=== PATIENT | female | born 1965 | race Hispanic/Latino ===

== ENCOUNTER 2017-04-08 20:14 | Emergency (ER) | payer SELFPAY ==
[~2017-04-08] VITALS: Ht 152.4 cm; Wt 69.0 kg
[~2017-04-08 20:14] MED LIST: CAPOTEN25 MG PO; CAPTOPRIL PO; GENTAMICIN15 ML/BTL OP; PREVACID30 M2 PO; ZITHROMAX250 MG PO; ZOFRAN ODT8 MG PO; [UNRECOGNIZED DRUG - REMARK]
--- NOTE | 2017-04-08 20:48 | NUR ---
breathing treatment given. breathing tech. for good deposition to the lungs.
[2017-04-08] MEDS ORDERED: OMEPRAZOLE20 M1 PO (21:37)
[2017-04-08] MEDS ORDERED: METRONIDAZOLE500 MG PO (21:38)
[2017-04-08] MEDS ORDERED: LISINOPRIL40 MG PO (21:39)
[2017-04-08] MEDS ORDERED: AMLODIPINE5 MG PO (21:39)
[2017-04-08] MEDS ORDERED: BAYER ASPIRIN E81 MG PO (21:40)
[2017-04-08] MEDS ORDERED: PRAVASTATIN20 MG PO (21:40)
[2017-04-08] MEDS ORDERED: ZITHROMAX250 MG PO (21:46)
[2017-04-08] MEDS ORDERED: PROVENTIL HFA IN (21:48)
[2017-04-08 22:10] VITALS: BP 126/60
== END 2017-04-08 22:10 | disposition home or self-care (01) | DRG 203 ==
LOC: ED 20:14
DX: J45.909 Unspecified asthma, uncomplicated (principal); I10 Essential (primary) hypertension

== ENCOUNTER 2017-08-11 19:36 | Emergency (ER) | payer SELFPAY ==
[~2017-08-11] VITALS: Ht 152.4 cm; Wt 67.2 kg
[~2017-08-11 19:36] MED LIST changes: +AMLODIPINE5 MG PO; +BAYER ASPIRIN E81 MG PO; +LISINOPRIL40 MG PO; +METRONIDAZOLE500 MG PO; +OMEPRAZOLE20 M1 PO; +PRAVASTATIN20 MG PO; +PROVENTIL HFA IN
[2017-08-11 21:17] LABS: HEMOGLOBIN 12.8 g/dl (12.0-16.0); IMMATURE GRANULOCYTES 0.4 % (0.0-1.0); MEAN CELL VOLUME 90.2 fL CALC (80.0-100.0); MEAN CORPUSCULAR HGB 31.2 pG CALC (26.0-32.0); MEAN CORPUSCULAR HGB CONC 34.6 g/L CALC (32.0-36.0); NEUT# 5.47 thou/uL (2.00-7.15); RED BLOOD COUNT 4.1 mill/uL (4.20-5.60); RED CELL DISTRI WIDTH 12.2 % (11.5-15.5)
[2017-08-11 21:33] LABS: INFLUENZA A NONE DETECTED (NONE DETECT); INFLUENZA B NONE DETECTED (NONE DETECT)
[2017-08-11 21:34] LABS: ALBUMIN 4.3 g/dL (3.2-5.0); ALKALINE PHOSPHATASE 120 u/l (38-126); ANION GAP 20 (6-22 (CALC)); BILIRUBIN, TOTAL 0.2 mg/dL (0.0-1.4); BUN 13 mg/dL (7-17); BUN/CREATININE RATIO 18 (12-20 (CALC)); CALCIUM 9.9 mg/dL (8.4-10.2); CARBON DIOXIDE 20 mmol/l (22-30); CHLORIDE 109 mmol/l (95-108); CREATININE 0.8 mg/dL (0.5-1.0); GFR > 60 ML/MIN (>=60 (CALC)); GFR FOR AFR.AMER. > 60 ML/MIN (>=60 (CALC)); GLUCOSE 105 mg/dL (65-105); SGOT/AST 24 u/l (14-36); SGPT/ALT 46 u/l (9-52); SODIUM 145 mmol/l (137-146); TOTAL PROTEIN 7.5 g/dL (6.3-8.2)
[2017-08-11 21:45] LABS: INTERNATIONAL NORMALIZED RATIO 0.9 RATIO (0.7-1.3); PROTHROMBIN TIME 10.1 SECONDS (9.0-12.5)
[2017-08-11] MEDS ORDERED: ZPAK PO (22:38)
[2017-08-11] MEDS ORDERED: CLARITIN10 M1 PO (22:38)
[2017-08-11 23:05] VITALS: BP 152/78
== END 2017-08-11 23:05 | disposition home or self-care (01) | DRG 153 ==
LOC: ED 19:36
PROVIDERS: Emergency Medicine
DX: J02.0 Streptococcal pharyngitis (principal); J31.0 Chronic rhinitis; R04.0 Epistaxis; E78.00 Pure hypercholesterolemia, unspecified; I10 Essential (primary) hypertension; J45.909 Unspecified asthma, uncomplicated; F41.9 Anxiety disorder, unspecified

== ENCOUNTER 2019-09-26 | Emergency (ER) | payer SELFPAY ==
[~2019-09-26] MED LIST changes: +CLARITIN10 M1 PO; +ZPAK PO
[2019-09-26] MEDS ORDERED: OMEPRAZOLE DR20 MG PO (03:16)
[2019-09-26 03:29] LABS: HEMATOCRIT 39.1 % (37.0-47.0); HEMOGLOBIN 13.2 g/dl (12.0-16.0); IMMATURE GRANULOCYTES 0.4 % (0.0-5.0); MEAN CELL VOLUME 87.9 fL CALC (80.0-100.0); MEAN CORPUSCULAR HGB 29.7 pG CALC (26.0-32.0); MEAN CORPUSCULAR HGB CONC 33.8 g/dL CAL (32.0-36.0); NEUT# 5.69 thou/uL (2.00-7.15); RED BLOOD COUNT 4.45 mill/uL (4.20-5.60)
[2019-09-26 03:46] LABS: ACT PARTIAL THROMBO TIME 25.5 SECONDS (20.0-32.5); INTERNATIONAL NORMALIZED RATIO 0.9 RATIO (0.7-1.3); PROTHROMBIN TIME 9.9 SECONDS (9.0-12.5)
[2019-09-26 03:50] LABS: ALBUMIN 4.3 g/dL (3.2-5.0); ALKALINE PHOSPHATASE 116 u/l (38-126); BUN 13 mg/dL (7-17); BUN/CREATININE RATIO 23 (12-20 (CALC)); CARBON DIOXIDE 23 mmol/l (22-30); CHLORIDE 104 mmol/l (95-108); CREATININE 0.6 mg/dL (0.5-1.0); GFR > 60 ML/MIN (>=60 (CALC)); GFR FOR AFR.AMER. > 60 ML/MIN (>=60 (CALC)); LIPASE 73 u/l (23-300); POTASSIUM 3.7 mmol/l (3.5-5.1); SGOT/AST 31 u/l (14-36); TOTAL PROTEIN 7.8 g/dL (6.3-8.2)
[2019-09-26 03:51] LABS: ANION GAP 14 (6-22 (CALC)); BILIRUBIN, TOTAL 0.6 mg/dL (0.0-1.4); SODIUM 137 mmol/l (137-146)
[2019-09-26 04:28] LABS: URINE BILIRUBIN - DIPSTICK NEGATIVE (NEGATIVE); URINE BLOOD DIPSTICK NEGATIVE (NEGATIVE); URINE COLOR YELLOW; URINE GLUCOSE - DIPSTICK NEGATIVE (NEGATIVE); URINE KETONE NEGATIVE (NEGATIVE); URINE LEUK ESTERASE NEGATIVE (NEGATIVE); URINE NITRITE - DIPSTICK NEGATIVE (Negative); URINE PROTEIN - DIPSTICK NEGATIVE (NEG-TRACE); URINE UROBILINOGEN - DIPSTICK 0.2 E.U./dL (0.2)
[2019-09-26] MEDS ORDERED: LEVAQUIN500 MG PO (05:48)
[2019-09-26] MEDS ORDERED: TRAMADOL HYDROC50 MG PO (05:48)
== END 2019-09-26 06:20 | disposition home or self-care (01) | DRG 153 ==
DX: J32.9 Chronic sinusitis, unspecified (principal); R07.89 Other chest pain; I10 Essential (primary) hypertension

== ENCOUNTER 2020-08-08 16:35 | Emergency (ER) | payer SELFPAY ==
[~2020-08-08] VITALS: Ht 152.4 cm; Wt 68.1 kg
[~2020-08-08 16:35] MED LIST changes: +LEVAQUIN500 MG PO; +OMEPRAZOLE DR20 MG PO; +TRAMADOL HYDROC50 MG PO
[2020-08-08 17:34] LABS: URINE BILIRUBIN - DIPSTICK NEGATIVE (NEGATIVE); URINE BLOOD DIPSTICK NEGATIVE (NEGATIVE); URINE CLARITY CLEAR; URINE COLOR YELLOW; URINE GLUCOSE - DIPSTICK NEGATIVE (NEGATIVE); URINE KETONE NEGATIVE (NEGATIVE); URINE LEUK ESTERASE NEGATIVE (Negative); URINE NITRITE - DIPSTICK NEGATIVE (Negative); URINE PROTEIN - DIPSTICK TRACE mg/dL (NEG-TRACE); URINE SPECIFIC GRAVITY >=1.030; URINE UROBILINOGEN - DIPSTICK 0.2 E.U./dL (0.2)
[2020-08-08 17:42] LABS: HEMATOCRIT 39.2 % (37.0-47.0); IMMATURE GRANULOCYTES 0.3 % (0.0-5.0); MEAN CELL VOLUME 90.3 fL CALC (80.0-100.0); MEAN CORPUSCULAR HGB CONC 33.2 g/dL CAL (32.0-36.0); NEUT# 6.22 thou/uL (2.00-7.15); RED BLOOD COUNT 4.34 mill/uL (4.20-5.60); RED CELL DISTRI WIDTH 11.9 % (11.5-15.5)
[2020-08-08 17:55] LABS: ALBUMIN 4.6 g/dL (3.2-5.0); ALKALINE PHOSPHATASE 133 u/l (38-126); ANION GAP 13 (6-22 (CALC)); BILIRUBIN, TOTAL 0.4 mg/dL (0.0-1.4); BUN 20 mg/dL (7-17); BUN/CREATININE RATIO 29 (12-20 (CALC)); CARBON DIOXIDE 26 mmol/l (22-30); CHLORIDE 105 mmol/l (95-108); CREATININE 0.7 mg/dL (0.5-1.0); GFR > 60 ML/MIN (>=60 (CALC)); GFR FOR AFR.AMER. > 60 ML/MIN (>=60 (CALC)); LIPASE 53 u/l (23-300); SGOT/AST 49 u/l (14-36); SODIUM 139 mmol/l (137-146); TOTAL PROTEIN 8.4 g/dL (6.3-8.2)
[2020-08-08] MEDS ORDERED: LISINOPRIL5 MG PO (18:01)
[2020-08-08] MEDS ORDERED: METRONIDAZOL500 MG PO ×2 (19:19→20:11)
[2020-08-08] MEDS ORDERED: CIPROFLOXACN500 MG PO ×2 (19:19→20:11)
[2020-08-08 20:33] VITALS: BP 123/60
== END 2020-08-08 20:34 | disposition home or self-care (01) | DRG 392 ==
LOC: ED 16:35
DX: K57.32 Diverticulitis of large intestine without perforation or abscess without bleeding (principal); I10 Essential (primary) hypertension; J45.909 Unspecified asthma, uncomplicated; F41.9 Anxiety disorder, unspecified; E78.00 Pure hypercholesterolemia, unspecified
CPT/HCPCS: Q9967

== ENCOUNTER 2021-05-11 20:31 | Emergency (ER) | payer SELFPAY ==
[~2021-05-11] VITALS: Ht 152.4 cm; Wt 69.1 kg
[~2021-05-11 20:31] MED LIST changes: +CIPROFLOXACN500 MG PO; +LISINOPRIL5 MG PO; +METRONIDAZOL500 MG PO
[2021-05-11] MEDS ORDERED: METFORMIN HCL1000 MG PO (21:30)
[2021-05-11] MEDS ORDERED: MELATONIN10 MG (21:38)
[2021-05-11] MEDS ORDERED: NORVASC5 M1 PO (21:39)
[2021-05-11] MEDS ORDERED: VOLTAREN75 MG PO (21:51)
[2021-05-11 22:04] VITALS: BP 137/64
== END 2021-05-11 22:04 | disposition home or self-care (01) | DRG 605 ==
LOC: ED 20:31
DX: S90.32XA Contusion of left foot, initial encounter (principal); I10 Essential (primary) hypertension; J45.909 Unspecified asthma, uncomplicated; F41.9 Anxiety disorder, unspecified; E78.00 Pure hypercholesterolemia, unspecified; W22.8XXA Striking against or struck by other objects, initial encounter

== ENCOUNTER 2021-12-04 16:33 | Emergency (ER) | payer SELFPAY ==
[~2021-12-04] VITALS: Ht 152.4 cm; Wt 91.0 kg
[~2021-12-04 16:33] MED LIST changes: +MELATONIN10 MG; +METFORMIN HCL1000 MG PO; +NORVASC5 M1 PO; +VOLTAREN75 MG PO
[2021-12-04 17:23] LABS: HEMATOCRIT 37.1 % (37.0-47.0); HEMOGLOBIN 12.6 g/dl (12.0-16.0); IMMATURE GRANULOCYTES 0.2 % (0.0-5.0); MEAN CELL VOLUME 90.7 fL CALC (80.0-100.0); MEAN CORPUSCULAR HGB 30.8 pG CALC (26.0-32.0); NEUT# 7.77 thou/uL (2.00-7.15); RED BLOOD COUNT 4.09 mill/uL (4.20-5.60)
[2021-12-04 17:41] LABS: ALBUMIN 4.4 g/dL (3.2-5.0); ALKALINE PHOSPHATASE 139 u/l (38-126); ANION GAP 15 (6-22 (CALC)); BILIRUBIN, TOTAL 0.2 mg/dL (0.0-1.4); BUN 27 mg/dL (7-17); BUN/CREATININE RATIO 33 (12-20 (CALC)); CARBON DIOXIDE 21 mmol/l (22-30); CHLORIDE 107 mmol/l (95-108); CREATININE 0.8 mg/dL (0.5-1.0); GFR FOR AFR.AMER. > 60 ML/MIN (>=60 (CALC)); GFR OTHER RACES > 60 ML/MIN (>=60 (CALC)); LIPASE 77 u/l (23-300); POTASSIUM 3.8 mmol/l (3.5-5.1); SGOT/AST 41 u/l (14-36); SODIUM 139 mmol/l (137-146)
[2021-12-04] MEDS ORDERED: METRONIDAZOLE500 MG PO (18:43)
[2021-12-04 19:37] LABS: URINE BILIRUBIN - DIPSTICK NEGATIVE (NEGATIVE); URINE BLOOD DIPSTICK NEGATIVE (NEGATIVE); URINE COLOR YELLOW; URINE GLUCOSE - DIPSTICK NEGATIVE (NEGATIVE); URINE KETONE NEGATIVE (NEGATIVE); URINE LEUK ESTERASE NEGATIVE (NEGATIVE); URINE PH 5.5 (4.5-8.0); URINE PROTEIN - DIPSTICK NEGATIVE (NEG-TRACE); URINE SPECIFIC GRAVITY 1.015; URINE UROBILINOGEN - DIPSTICK 0.2 E.U./dL (0.2)
[2021-12-04 19:42] LABS: URINE NITRITE - DIPSTICK NEGATIVE (Negative)
[2021-12-04] MEDS ORDERED: MIRALAX17 GM PO (21:32)
[2021-12-04] MEDS ORDERED: NAPROXEN500 MG PO (21:33)
[2021-12-04 22:01] VITALS: BP 125/67
== END 2021-12-04 22:08 | disposition home or self-care (01) | DRG 392 ==
LOC: ED 16:33
PROVIDERS: Family Medicine
DX: K59.00 Constipation, unspecified (principal); B34.9 Viral infection, unspecified; D25.9 Leiomyoma of uterus, unspecified; R16.0 Hepatomegaly, not elsewhere classified; I10 Essential (primary) hypertension; E78.5 Hyperlipidemia, unspecified; E11.9 Type 2 diabetes mellitus without complications; J45.909 Unspecified asthma, uncomplicated; F41.9 Anxiety disorder, unspecified; Z79.84 Long term (current) use of oral hypoglycemic drugs; Z20.822 Contact with and (suspected) exposure to COVID-19
CPT/HCPCS: Q9967

== ENCOUNTER 2022-01-10 20:04 | Emergency (ER) | payer SELFPAY ==
[~2022-01-10] VITALS: Ht 152.4 cm; Wt 75.0 kg
[2022-01-10] VITALS (8 sets, daily range): BP systolic 136–169; BP diastolic 72–95
[~2022-01-10 20:04] MED LIST changes: +MIRALAX17 GM PO; +NAPROXEN500 MG PO
[2022-01-10 20:59] LABS: HEMATOCRIT 35.3 % (37.0-47.0); HEMOGLOBIN 12.1 g/dl (12.0-16.0); IMMATURE GRANULOCYTES 0.3 % (0.0-5.0); MEAN CELL VOLUME 89.8 fL CALC (80.0-100.0); MEAN CORPUSCULAR HGB 30.8 pG CALC (26.0-32.0); MEAN CORPUSCULAR HGB CONC 34.3 g/dL CAL (32.0-36.0); NEUT# 10.34 thou/uL (2.00-7.15); RED BLOOD COUNT 3.93 mill/uL (4.20-5.60); RED CELL DISTRI WIDTH 11.9 % (11.5-15.5)
[2022-01-10 21:16] LABS: ALBUMIN 4.4 g/dL (3.2-5.0); ALKALINE PHOSPHATASE 136 u/l (38-126); AMYLASE 74 u/l (30-110); ANION GAP 15 (6-22 (CALC)); BILIRUBIN, TOTAL 0.2 mg/dL (0.0-1.4); BUN 17 mg/dL (7-17); BUN/CREATININE RATIO 19 (12-20 (CALC)); CARBON DIOXIDE 23 mmol/l (22-30); CHLORIDE 103 mmol/l (95-108); CREATININE 0.9 mg/dL (0.5-1.0); GFR FOR AFR.AMER. > 60 ML/MIN (>=60 (CALC)); GFR OTHER RACES > 60 ML/MIN (>=60 (CALC)); LIPASE 44 u/l (23-300); POTASSIUM 3.8 mmol/l (3.5-5.1); SGOT/AST 30 u/l (14-36); SODIUM 137 mmol/l (137-146); TOTAL PROTEIN 7.5 g/dL (6.3-8.2)
[2022-01-10 21:28] LABS: MYOGLOBIN 23 ng/mL (0 - 62)
[2022-01-10 21:46] LABS: URINE BILIRUBIN - DIPSTICK NEGATIVE (NEGATIVE); URINE BLOOD DIPSTICK MODERATE (NEGATIVE); URINE COLOR YELLOW; URINE GLUCOSE - DIPSTICK NEGATIVE (NEGATIVE); URINE KETONE NEGATIVE (NEGATIVE); URINE LEUK ESTERASE NEGATIVE (NEGATIVE); URINE PROTEIN - DIPSTICK NEGATIVE (NEG-TRACE); URINE SPECIFIC GRAVITY >=1.030; URINE UROBILINOGEN - DIPSTICK 0.2 E.U./dL (0.2)
[2022-01-10 21:47] LABS: URINE NITRITE - DIPSTICK NEGATIVE (Negative)
[2022-01-10 21:57] LABS: URINE SQUAMOUS EPITHELIAL CELL FEW EPI/hpf (0-FEW); URINE WBC 0-2 WBC/hpf (0-5)
[2022-01-10] MEDS ORDERED: TAMSULOSIN0.4 MG PO (22:57)
[2022-01-10] MEDS ORDERED: ULTRAM50 M1 PO (22:57)
[2022-01-11 00:01] VITALS: BP 150/79
== END 2022-01-11 00:15 | disposition home or self-care (01) | DRG 694 ==
LOC: ED 20:04
PROVIDERS: Emergency Medicine
DX: N20.0 Calculus of kidney (principal); I10 Essential (primary) hypertension; J45.909 Unspecified asthma, uncomplicated; F41.9 Anxiety disorder, unspecified; E78.00 Pure hypercholesterolemia, unspecified
CPT/HCPCS: Q9967

== ENCOUNTER 2022-08-29 21:54 | Observation (INO) | payer OTHER ==
[~2022-08-29] VITALS: Ht 152.4 cm; Wt 68.6 kg
[~2022-08-29 21:54] MED LIST changes: +TAMSULOSIN0.4 MG PO; +ULTRAM50 M1 PO
[2022-08-29 22:15] LABS: BASO% 0.5 % (0-3); EOS% 6.8 % (0-8); HEMATOCRIT 38.9 % (37.0-47.0); HEMOGLOBIN 12.8 g/dl (12.0-16.0); IMMATURE GRANULOCYTES 0.2 % (0.0-5.0); LYMPH% 41.8 % (15-41); MEAN CELL VOLUME 89.2 fL CALC (80.0-100.0); MEAN CORPUSCULAR HGB 29.4 pG CALC (26.0-32.0); MEAN CORPUSCULAR HGB CONC 32.9 g/dL CAL (32.0-36.0); MONO% 6.6 % (2-13); NEUT# 4.25 thou/uL (2.00-7.15); NEUT% 44.1 % (42-76); RED BLOOD COUNT 4.36 mill/uL (4.20-5.60); RED CELL DISTRI WIDTH 12.4 % (11.5-15.5)
[2022-08-29 22:27] LABS: ALBUMIN 4.4 g/dL (3.2-5.0); ALKALINE PHOSPHATASE 128 u/l (38-126); ANION GAP 13 (6-22 (CALC)); BILIRUBIN, TOTAL 0.2 mg/dL (0.02-1.3); BUN 17 mg/dL (7-17); BUN/CREATININE RATIO 23 (12-20 (CALC)); CARBON DIOXIDE 24 mmol/l (22-30); CHLORIDE 105 mmol/l (95-108); CREATININE 0.8 mg/dL (0.5-1.0); GFR FOR AFR.AMER. > 60 ML/MIN (>=60 (CALC)); GFR OTHER RACES > 60 ML/MIN (>=60 (CALC)); POTASSIUM 3.7 mmol/l (3.5-5.1); SGOT/AST 40 u/l (14-36); SODIUM 138 mmol/l (137-146); TOTAL PROTEIN 7.9 g/dL (6.3-8.2)
[2022-08-29 22:28] LABS: PROTHROMBIN TIME 9.7 SECONDS (9.0-12.5)
[2022-08-29 22:28] LABS: URINE BILIRUBIN - DIPSTICK NEGATIVE (NEGATIVE); URINE BLOOD DIPSTICK NEGATIVE (NEGATIVE); URINE COLOR YELLOW; URINE GLUCOSE - DIPSTICK 100 mg/dL (NEGATIVE); URINE KETONE NEGATIVE (NEGATIVE); URINE LEUK ESTERASE NEGATIVE (NEGATIVE); URINE PROTEIN - DIPSTICK NEGATIVE (NEG-TRACE); URINE SPECIFIC GRAVITY 1.025; URINE UROBILINOGEN - DIPSTICK 0.2 E.U./dL (0.2)
[2022-08-29 22:35] LABS: URINE NITRITE - DIPSTICK NEGATIVE (Negative)
[2022-08-29 22:36] VITALS: BP 143/72
[2022-08-29 22:46] VITALS: BP 127/109
[2022-08-29 23:00] VITALS: BP 119/63
[2022-08-29 23:15] VITALS: BP 120/73
[2022-08-29 23:30] VITALS: BP 123/70
[2022-08-29 23:45] VITALS: BP 123/70
[2022-08-30] VITALS (30 sets, daily range): BP systolic 100–156; BP diastolic 43–70
[2022-08-30] MEDS ORDERED: ESTRACE1 MG PO (00:52)
[2022-08-30] MEDS ORDERED: PROGESTERONE200 MG PO (00:53)
[2022-08-31 04:11] VITALS: BP 115/61
[2022-08-31 05:30] LABS: BASO% 0.5 % (0-3); EOS% 5.6 % (0-8); HEMATOCRIT 38.4 % (37.0-47.0); HEMOGLOBIN 12.8 g/dl (12.0-16.0); IMMATURE GRANULOCYTES 0.3 % (0.0-5.0); LYMPH% 42.9 % (15-41); MEAN CELL VOLUME 89.3 fL CALC (80.0-100.0); MEAN CORPUSCULAR HGB 29.8 pG CALC (26.0-32.0); MEAN CORPUSCULAR HGB CONC 33.3 g/dL CAL (32.0-36.0); MONO% 7.9 % (2-13); NEUT# 3.3 thou/uL (2.00-7.15); NEUT% 42.8 % (42-76); RED BLOOD COUNT 4.3 mill/uL (4.20-5.60); RED CELL DISTRI WIDTH 12.3 % (11.5-15.5)
[2022-08-31 06:05] LABS: ALBUMIN 3.9 g/dL (3.2-5.0); ALKALINE PHOSPHATASE 127 u/l (38-126); BUN 18 mg/dL (7-17); BUN/CREATININE RATIO 27 (12-20 (CALC)); CARBON DIOXIDE 24 mmol/l (22-30); CHLORIDE 107 mmol/l (95-108); CREATININE 0.7 mg/dL (0.5-1.0); GFR FOR AFR.AMER. > 60 ML/MIN (>=60 (CALC)); GFR OTHER RACES > 60 ML/MIN (>=60 (CALC)); SGOT/AST 28 u/l (14-36); SODIUM 139 mmol/l (137-146); TOTAL PROTEIN 6.9 g/dL (6.3-8.2)
[2022-08-31 06:09] LABS: ANION GAP 13 (6-22 (CALC)); POTASSIUM 4.5 mmol/l (3.5-5.1)
[2022-08-31 07:47] VITALS: BP 116/43
[2022-08-31 12:21] VITALS: BP 120/55
[2022-08-31] MEDS ORDERED: ASPIRIN 81 LOW81 MG PO (12:41)
== END 2022-08-31 13:34 | disposition home or self-care (01) | DRG 149 ==
LOC: ED 21:54 → ED-I 23:35 → ED 08-30 00:06 → MS2 08-30 00:07 → ED-I 08-30 00:07 → MS2 08-30 06:19
PROVIDERS: Emergency Medicine; Nurse Practitioner Family; ADMIT Internal Medicine; ATTEND Internal Medicine
DX: R42 Dizziness and giddiness (principal); R20.0 Anesthesia of skin; R47.01 Aphasia; G51.0 Bell's palsy; I10 Essential (primary) hypertension; E11.9 Type 2 diabetes mellitus without complications; J45.909 Unspecified asthma, uncomplicated; F41.9 Anxiety disorder, unspecified; E78.00 Pure hypercholesterolemia, unspecified; Z79.84 Long term (current) use of oral hypoglycemic drugs
CPT/HCPCS: G0378; J2060; Q9967

== ENCOUNTER 2024-01-01 08:04 | Observation (INO) | payer OTHER ==
[~2024-01-01] VITALS: Ht 152.4 cm; Wt 69.3 kg
[2024-01-01] VITALS (20 sets, daily range): BP systolic 112–170; BP diastolic 55–78
[~2024-01-01 08:04] MED LIST changes: +ASPIRIN 81 LOW81 MG PO; +ESTRACE1 MG PO; +PROGESTERONE200 MG PO
--- NOTE | 2024-01-01 08:09 | NUR ---
PATIENT TO ROOM 10
[2024-01-01] MEDS ORDERED: ASPIRIN 81 MG/TAB PO ONE (08:10)
[2024-01-01] MEDS ORDERED: NITROGLYCERIN 0.4 MG/TAB SL ONE (08:15)
[2024-01-01 08:34] LABS: BASO% 0.6 % (0-3); EOS% 3.7 % (0-8); HEMATOCRIT 40.9 % (37.0-47.0); HEMOGLOBIN 13.7 g/dl (12.0-16.0); IMMATURE GRANULOCYTES 0.2 % (0.0-5.0); LYMPH% 43.5 % (15-41); MEAN CELL VOLUME 90.1 fL CALC (80.0-100.0); MEAN CORPUSCULAR HGB 30.2 pG CALC (26.0-32.0); MEAN CORPUSCULAR HGB CONC 33.5 g/dL CAL (32.0-36.0); MONO% 6.1 % (2-13); NEUT# 5.15 thou/uL (2.00-7.15); NEUT% 45.9 % (42-76); RED BLOOD COUNT 4.54 mill/uL (4.20-5.60); RED CELL DISTRI WIDTH 11.9 % (11.5-15.5)
[2024-01-01 08:53] LABS: ALBUMIN 4.3 g/dL (3.2-5.0); ALKALINE PHOSPHATASE 106 u/l (38-126); ANION GAP 11 (6-22 (CALC)); BILIRUBIN, TOTAL 0.4 mg/dL (0.02-1.3); BUN 18 mg/dL (7-17); BUN/CREATININE RATIO 30 (12-20 (CALC)); CARBON DIOXIDE 23 mmol/l (22-30); CHLORIDE 110 mmol/l (95-108); CREATININE 0.6 mg/dL (0.5-1.0); ESTIMATED GFR 105 ML/MIN (>=90 (CALC)); SGOT/AST 25 u/l (14-36); SODIUM 139 mmol/l (137-146); TOTAL PROTEIN 7.8 g/dL (6.3-8.2)
--- NOTE | 2024-01-01 09:23 | NUR ---
PT REPORTS CHEST PAIN HAS [id number] TO 08/03. PT REPORTS CONTINUED SOB. PT HAS A DRY COUGH.
--- NOTE | 2024-01-01 10:30 | NUR ---
PT RESTIONG IN BED, EYES LOSED. VSS. DAUGHTER AT SIDE.
--- NOTE | 2024-01-01 11:32 | NUR ---
PT [id number] SHE DOES NOT KNOW HER MEDS OR THE DOSAGES. PTS DAUGHET IS LEAVING BEDSIDE TO GO HOME AND PALLET ASSEMBLER THE LIST. WILL LET NEXT NURSE KNOW IN REPORTS.
[2024-01-01] MEDS ORDERED: MAGNESIUM HYDROXIDE 30 ML UDC PO PRN (11:55)
--- NOTE | 2024-01-01 11:57 | NUR ---
REPORT CALLED AND GIVEN TO MARKELL ON [facility].
--- NOTE | 2024-01-01 12:10 | NUR ---
PATIENT ARRIVED TO [place] VIA WHEELCHAIR; ROOM AIR; BREATHING UNLABORED AND EVEN; TELE LEADS ARE ATTACHED AND WORKING WITH NO ISSUES; DENIED ANY PAIN; DENIED ANY N/D/V AT THIS TIME; IV SITE CLEAN AND INTACT; EDUCATED ON FALL RISK AND PREVENTION; PATIENT STABLE IN BED WITH NO ISSUES; CALL LIGHT WITHIN REACH,VERBALIZED UNDERSTANDING ON HOW TO USE, PERSONAL ITEMS WITHIN REACH, BED IN LOWEST POSTION
[2024-01-01] MEDS ORDERED: D31000 UNIT PO (12:30)
[2024-01-01] MEDS ORDERED: OXYBUTYNIN CHLOR5 M2 PO (12:31)
[2024-01-01] MEDS ORDERED: EZETIMIBE10 MG PO (12:31)
[2024-01-01] MEDS ORDERED: NITROGLYCERIN 0.4 MG/TAB SL PRN (13:05)
[2024-01-01] MEDS ORDERED: MORPHINE SULFATE 4 MG/ML VIAL IV PRN (13:05)
[2024-01-01] MEDS ORDERED: DEXTROSE 250 ML IV PRN (13:20)
[2024-01-01] MEDS ORDERED: IBUPROFEN 600 MG/TAB PO PRN (15:05)
--- NOTE | 2024-01-01 15:30 | NUR ---
CARIDOLOGIST CONSULT STARTED
--- NOTE | 2024-01-01 16:05 | NUR ---
PATIENT A/O X3; ROOM AIR; BREATHING UNALBORED AND EVEN; DENEID ANY CHEST PAIN; DENIED ANY N/D/V AT THIS TIME; IV SITE CLEAN AND INTCAT SALINE LOCKED WITH NO ISSUES; TELE LEADS ARE ATTACHED AND WORKING WITH NO ISSUES; NO S/S OF DISTRESS AT THIS TIME; CALL LIGHT WITHIN REACH, VERBALIZED UNDERSTANDING ON HOW TO USE, PERSONAL ITEMS WITHIN REACH, BED IN LOWEST POSTION
[2024-01-01] MEDS ORDERED: INSULIN LISPRO 100 UNITS/ML ML SC SCH (17:00)
--- NOTE | 2024-01-01 20:00 | NUR ---
RECEIVED REPORT FROM NURSE MARKELL, PATIENT RESTING IN BED,SON IN ROOM, DENIES PAIN AT THSI TIME, IV ON LACV G 20 PATENT FLUSHES WELL, ON TELEMETRY, NOT IN DISTRESS, BREATHING EVEN UNLABORED.CALL LIGHT IN REACHED.
[2024-01-01] MEDS ORDERED: METOPROLOL TARTRATE 25 MG/TAB PO SCH (21:00)
[2024-01-01] MEDS ORDERED: PANTOPRAZOLE SODIUM Sesquihydr 40 MG/TAB PO SCH (21:00)
[2024-01-01] MEDS ORDERED: ENOXAPARIN SODIUM 40 MG/0.4 ML SYR SC SCH (21:00)
[2024-01-01] MEDS ORDERED: ATORVASTATIN CALCIUM 40 MG/TAB PO SCH (21:00)
[2024-01-02] VITALS: BP 124/61
[2024-01-02 00:08] VITALS: BP 124/61
--- NOTE | 2024-01-02 01:01 | NUR ---
PATINET IN BED, EYES CLOSED, BREATHING EVEN UNLABORED CALL LIGHT IN REACHED, NO DISCOMFORTS NOTED AT THIS TIME.
[2024-01-02 04:00] VITALS: BP 115/62
--- NOTE | 2024-01-02 04:23 | NUR ---
PATIENT RESTING IN ED, EYES CLOSED, BRAETHING EVEN UNALBORED CALL LIGHT IN REACHED.
[2024-01-02 05:38] LABS: BASO% 0.5 % (0-3); EOS% 4.4 % (0-8); HEMATOCRIT 38.2 % (37.0-47.0); HEMOGLOBIN 12.8 g/dl (12.0-16.0); IMMATURE GRANULOCYTES 0.1 % (0.0-5.0); LYMPH% 51.2 % (15-41); MEAN CELL VOLUME 90.1 fL CALC (80.0-100.0); MEAN CORPUSCULAR HGB 30.2 pG CALC (26.0-32.0); MEAN CORPUSCULAR HGB CONC 33.5 g/dL CAL (32.0-36.0); MONO% 5.9 % (2-13); NEUT# 3.44 thou/uL (2.00-7.15); NEUT% 37.9 % (42-76); RED BLOOD COUNT 4.24 mill/uL (4.20-5.60); RED CELL DISTRI WIDTH 11.9 % (11.5-15.5)
[2024-01-02 05:59] LABS: ALBUMIN 3.7 g/dL (3.2-5.0); BILIRUBIN, TOTAL 0.4 mg/dL (0.02-1.3); CREATININE 0.6 mg/dL (0.5-1.0); MAGNESIUM 1.6 mg/dL (1.6-2.3); POTASSIUM 4.2 mmol/l (3.5-5.1); TOTAL PROTEIN 6.8 g/dL (6.3-8.2)
[2024-01-02 06:05] LABS: CHOLESTEROL HDL RATIO 2.6 (<4.4 (CALC))
[2024-01-02 07:01] VITALS: BP 122/60
--- NOTE | 2024-01-02 07:22 | NUR ---
BEDSIDE REPORT RECEIVED FROM OFF GOING NURSE. PATIENT ASLEEP IN BED BUT EASILY AROUSED. PATEINT DENIES PAIN OR DISCOMFORT AND VOICES NO CONCERN AT THSI TIME. RESPIRATIONS EVEN AND UNLABORED ON ROOM AIR. SAFETY MEASURES IN PLACE. CALL LIGHT WITHIN REACH.
[2024-01-02] MEDS ORDERED: ASPIRIN 81 MG/TAB PO SCH (09:00)
[2024-01-02] MEDS ORDERED: PANTOPRAZOLE SODIUM Sesquihydr 40 MG/TAB PO SCH (09:00)
--- NOTE | 2024-01-02 09:39 | NUR ---
PATIENT AWAKE IN BED. DENIES PAIN OR DISCOMFORT AT THIS TIME. NO CONCERNS VOICED. CALL LIGHT WITHIN REACH.
--- NOTE | 2024-01-02 10:48 | NUR ---
PATIENT TOOK A SHOWER THIS MORNING. DENIES PAIN OR DISCOMFORT. RESPIRATIONS EVEN AND UNLABORED ON ROOM AIR. NO SIGNS OF DISTRESS NOTED. PATIENT AWARE OF DISCHARGE TODAY AND STATED THAT SHE WILL HAVE A RIDE AY 12 PM. NO CONCERNS VOICED AT THIS TIME.
[2024-01-02 11:11] VITALS: BP 123/58
--- NOTE | 2024-01-02 11:46 | NUR ---
DISCHARGE INSTRUCTIOINS GIVEN TO PATIENT. PATIENT ALERT AND ORIENTED AND ABLE TO VERBALIZE UNDERSTANDING OF INSTRUCTIONS.. PERIPHERAL IV DISCONTINUED AND TELEMETRY REMOVED. DENIES PAIN OR DISCOMFORT AT THIS TIME. CURRENTLY EATING LUNCH AND AWAITING SON FOR A RIDE.
--- NOTE | 2024-01-02 11:58 | NUR ---
PATIENT DECIDED TO AMBULATE INDEPENDENTLY TO CAR WITH SON ACCOMPANYING. DISCHARGE TIME 1158.
== END 2024-01-02 11:58 | disposition home or self-care (01) | DRG 313 ==
LOC: ED 08:04 → ED-I 11:00 → ED 11:15 → MS2 11:16
PROVIDERS: Family Medicine; Nurse Practitioner Family; ADMIT Student in an Organized Health Care Education/Training Program; ATTEND Student in an Organized Health Care Education/Training Program
DX: R07.89 Other chest pain (principal); I10 Essential (primary) hypertension; E11.9 Type 2 diabetes mellitus without complications; J45.909 Unspecified asthma, uncomplicated; F41.9 Anxiety disorder, unspecified; F32.A Depression, unspecified; E78.00 Pure hypercholesterolemia, unspecified; Z79.84 Long term (current) use of oral hypoglycemic drugs
CPT/HCPCS: G0378; J1650

== ENCOUNTER 2024-03-30 20:40 | Emergency (ER) | payer OTHER ==
[~2024-03-30] VITALS: Ht 152.4 cm; Wt 69.0 kg
[~2024-03-30 20:40] MED LIST changes: +D31000 UNIT PO; +EZETIMIBE10 MG PO; +OXYBUTYNIN CHLOR5 M2 PO
[2024-03-30 21:31] VITALS: BP 119/61
[2024-03-30 21:43] LABS: BASO% 0.7 % (0-3); EOS% 3.2 % (0-8); HEMATOCRIT 36.3 % (37.0-47.0); HEMOGLOBIN 12.4 g/dl (12.0-16.0); IMMATURE GRANULOCYTES 0.2 % (0.0-5.0); LYMPH% 32.9 % (15-41); MEAN CELL VOLUME 88.8 fL CALC (80.0-100.0); MEAN CORPUSCULAR HGB 30.3 pG CALC (26.0-32.0); MEAN CORPUSCULAR HGB CONC 34.2 g/dL CAL (32.0-36.0); MONO% 6.3 % (2-13); NEUT# 5.91 thou/uL (2.00-7.15); NEUT% 56.7 % (42-76); RED BLOOD COUNT 4.09 mill/uL (4.20-5.60); RED CELL DISTRI WIDTH 11.9 % (11.5-15.5)
[2024-03-30 21:56] LABS: ALBUMIN 4.1 g/dL (3.2-5.0); BILIRUBIN, TOTAL 0.3 mg/dL (0.02-1.3); CREATININE 0.7 mg/dL (0.5-1.0); POTASSIUM 4.1 mmol/l (3.5-5.1); TOTAL PROTEIN 7.1 g/dL (6.3-8.2)
[2024-03-30 22:00] VITALS: BP 108/57
[2024-03-30 22:03] LABS: D-DIMER 0.3 mg/L (0.19-0.60)
[2024-03-30 22:07] LABS: ACT PARTIAL THROMBO TIME 25.5 SECONDS (20.0-32.5); PROTHROMBIN TIME 9.3 SECONDS (9.0-12.5)
[2024-03-30 22:30] VITALS: BP 104/61
[2024-03-30 23:00] VITALS: BP 106/56
[2024-03-30 23:14] VITALS: BP 106/56
== END 2024-03-30 23:14 | disposition home or self-care (01) | DRG 605 ==
LOC: ED 20:40
PROVIDERS: Emergency Medicine
PROC: 2W3VXYZ Immobilization of Left Toe using Other Device (ICD-10-PCS; principal; 2024-03-30)
DX: S90.112A Contusion of left great toe without damage to nail, initial encounter (principal); M25.471 Effusion, right ankle; E11.9 Type 2 diabetes mellitus without complications; I10 Essential (primary) hypertension; J45.909 Unspecified asthma, uncomplicated; K21.9 Gastro-esophageal reflux disease without esophagitis; F41.9 Anxiety disorder, unspecified; E78.00 Pure hypercholesterolemia, unspecified; W01.0XXA Fall on same level from slipping, tripping and stumbling without subsequent striking against object, initial encounter; Y92.512 Supermarket, store or market as the place of occurrence of the external cause